=== PATIENT | male | born 1935 | race Caucasian/White ===

== ENCOUNTER 2020-07-16 14:34 | Day surgery (SDC) | payer OTHER ==
[~2020-07-16] VITALS: Ht 180.3 cm; Wt 74.1 kg
[2020-07-16] VITALS (8 sets, daily range): BP systolic 122–155; BP diastolic 61–86
[2020-07-16] MEDS ORDERED: MIDAZolam 1 MG/ML 5ML VIAL ONE (15:29)
[2020-07-16] MEDS ORDERED: levoFLOXACIN-Levaquin 500mg/D5 100 ML IV ONE (15:29)
[2020-07-16] MEDS ORDERED: fentaNYL/PF 50MCG/1 ML 2ML syringe ONE (15:29)
[2020-07-16] MEDS ORDERED: LIDOcaine Viscous 15ml cup ONE (15:29)
[2020-07-16] MEDS ORDERED: glucagon, human recombinant 1mg kit ONE (15:30)
[2020-07-16] MEDS ORDERED: iohexol 300 MG/1 ML 50ml polymer ONE (15:30)
[2020-07-16] MEDS ORDERED: LEVOTHYROXIN PO (15:39)
== END 2020-07-16 18:40 | disposition home or self-care (01) ==
LOC: GI LAB 14:34
PROVIDERS: ATTEND Internal Medicine Gastroenterology
DX: K80.50 Calculus of bile duct without cholangitis or cholecystitis without obstruction (principal); K31.5 Obstruction of duodenum
CPT/HCPCS: 43264; 43274; 74328; 99153; C1726; C1769; G0500; J1610; J1956; J2250; J3010; J7040; Q9967; 43245; 43262; 43277; 99152; A4620